=== PATIENT | male | born 1950 | race Hispanic/Latino ===

== ENCOUNTER → 2018-05-02 | Outpatient (CLI) | payer OTHER ==
[~2018-05-02] VITALS: Ht 180.3 cm; Wt 93.9 kg
[~2018-05-02] MED LIST: ALDACTONE25 MG PO; ARNUITY ELLIPT50 MCG IH; COREG6.25 M1 PO; COZAAR100 MG PO; GLUCOTROL10 MG PO; HYDROCHLOROTHIA25 MG PO; NORVASC10 MG PO; OMEPRAZOLE40 M1 PO; PEG 3350 ELEC4000 ML PO; PRAVACHOL40 MG PO; SAW PALMETTO450 MG PO; TRULICITY0.75 MG/0. SC; VITAMIN D31000 UNIT PO
[2018-05-02 08:51] LABS: HEMATOCRIT 34.6 % (38.0-50.0); HEMOGLOBIN 12.1 G/DL (12.5-16.6); MCV 82.8 FL (86-99)
== END | disposition home or self-care (01) ==
LOC: AMB 05-01 08:30
PROVIDERS: Internal Medicine Gastroenterology
DX: C18.7 Malignant neoplasm of sigmoid colon (principal); D12.2 Benign neoplasm of ascending colon; K64.8 Other hemorrhoids; Z86.010 Personal history of colon polyps; Z87.891 Personal history of nicotine dependence; I12.9 Hypertensive chronic kidney disease with stage 1 through stage 4 chronic kidney disease, or unspecified chronic kidney disease; E11.22 Type 2 diabetes mellitus with diabetic chronic kidney disease; N18.3 Chronic kidney disease, stage 3 (moderate); E78.1 Pure hyperglyceridemia; K21.9 Gastro-esophageal reflux disease without esophagitis; E78.6 Lipoprotein deficiency; E11.21 Type 2 diabetes mellitus with diabetic nephropathy; E11.40 Type 2 diabetes mellitus with diabetic neuropathy, unspecified; E11.51 Type 2 diabetes mellitus with diabetic peripheral angiopathy without gangrene; Z79.82 Long term (current) use of aspirin; Z79.84 Long term (current) use of oral hypoglycemic drugs; E66.3 Overweight; Z68.28 Body mass index [BMI] 28.0-28.9, adult; Z88.8 Allergy status to other drugs, medicaments and biological substances
CPT/HCPCS: 82948; 85014; 85018; 88305; 93005

== ENCOUNTER → 2018-06-10 | Outpatient (CLI) | payer OTHER | END | disposition home or self-care (01) | LOC: CDC 13:19 | DX: Z01.810 Encounter for preprocedural cardiovascular examination (principal); I44.0 Atrioventricular block, first degree; I45.10 Unspecified right bundle-branch block; I44.4 Left anterior fascicular block | CPT/HCPCS: 93000 ==

== ENCOUNTER 2018-06-25 10:19 | Inpatient (IN) | payer OTHER ==
[~2018-06-25] VITALS: Ht 180.3 cm; Wt 99.4 kg
[~2018-06-25 10:19] MED LIST changes: +CARVEDILOL12.5 MG PO
[2018-07-05 09:47] VITALS: BP 122/72
[2018-07-05 17:15] VITALS: BP 150/77
[2018-07-05 23:07] VITALS: BP 115/70
[2018-07-06 06:07] LABS: BASOPHIL (%) 0.1 % (0-1); EOSINOPHIL (%) 0 % (0-5); HEMATOCRIT 33.6 % (38.0-50.0); HEMOGLOBIN 11.9 G/DL (12.5-16.6); IMMATURE GRANULOCYTE (%) 0.5 % (0.0-0.7); LYMPHOCYTE (%) 14.9 % (15-42); LYMPHOCYTE COUNT 1.8 K/uL (1.0-2.8); MCH 29.7 PG (29.0-34.0); MCHC 35.4 G/DL (30.0-36.0); MCV 83.8 FL (86-99); MONOCYTE (%) 6.5 % (3-12); MONOCYTE COUNT 0.8 K/uL (0-0.8); NEUTROPHIL COUNT 9.2 K/uL (1.8-6.4); PLATELET COUNT 158 K/uL (156-360); RBC DIS.WIDTH-CV 12.6 % (11.8-14.6); RBC DIS.WIDTH-SD 38.5 % (39-53); RED BLOOD COUNT 4.01 M/uL (4.00-5.50); WHITE BLOOD COUNT 11.8 K/uL (4.1-10.2)
[2018-07-06 06:27] LABS: CHLORIDE 108 MEQ/L (99-109); GFR ESTIMATE (CALCULATED) 35 mL/min/ (58.99-99999); GLUCOSE 158 mg/dL (70-99); POTASSIUM 5.5 MEQ/L (3.7-5.4); SODIUM 136 MEQ/L (136-147); UREA NITROGEN (BUN) 32 mg/dL (9-23)
[2018-07-06 07:19] VITALS: BP 125/82
[2018-07-06 15:58] VITALS: BP 133/81
[2018-07-06 22:53] VITALS: BP 134/84
[2018-07-07 06:03] LABS: BASOPHIL (%) 0.3 % (0-1); BASOPHIL COUNT 0.1 K/uL (0-0.1); EOSINOPHIL (%) 0.5 % (0-5); EOSINOPHIL COUNT 0.1 K/uL (0-0.3); HEMATOCRIT 37.3 % (38.0-50.0); IMMATURE GRANULOCYTE (%) 0.6 % (0.0-0.7); LYMPHOCYTE (%) 17.3 % (15-42); LYMPHOCYTE COUNT 2.7 K/uL (1.0-2.8); MCH 29.7 PG (29.0-34.0); MCHC 34.9 G/DL (30.0-36.0); MCV 85.2 FL (86-99); MONOCYTE (%) 6.5 % (3-12); NEUTROPHIL (%) 74.8 % (45-76); NEUTROPHIL COUNT 11.8 K/uL (1.8-6.4); PLATELET COUNT 173 K/uL (156-360); RBC DIS.WIDTH-CV 12.8 % (11.8-14.6); RBC DIS.WIDTH-SD 39.7 % (39-53); RED BLOOD COUNT 4.38 M/uL (4.00-5.50); WHITE BLOOD COUNT 15.8 K/uL (4.1-10.2)
[2018-07-07 06:37] LABS: CHLORIDE 108 MEQ/L (99-109); CREATININE 1.8 MG/DL (0.6-1.3); GFR ESTIMATE (CALCULATED) 40 mL/min/ (58.99-99999); GLUCOSE 164 mg/dL (70-99); POTASSIUM 5.1 MEQ/L (3.7-5.4); SODIUM 136 MEQ/L (136-147); UREA NITROGEN (BUN) 36 mg/dL (9-23)
[2018-07-07 06:59] VITALS: BP 136/88
[2018-07-07 15:38] VITALS: BP 128/80
[2018-07-07 23:52] VITALS: BP 122/76
[2018-07-08 04:30] VITALS: BP 144/85
[2018-07-08 06:14] LABS: BASOPHIL (%) 0.5 % (0-1); BASOPHIL COUNT 0.1 K/uL (0-0.1); EOSINOPHIL (%) 3.3 % (0-5); EOSINOPHIL COUNT 0.5 K/uL (0-0.3); HEMATOCRIT 37.7 % (38.0-50.0); HEMOGLOBIN 12.9 G/DL (12.5-16.6); IMMATURE GRANULOCYTE (%) 0.4 % (0.0-0.7); LYMPHOCYTE (%) 16.7 % (15-42); LYMPHOCYTE COUNT 2.3 K/uL (1.0-2.8); MCH 29.5 PG (29.0-34.0); MCHC 34.2 G/DL (30.0-36.0); MCV 86.1 FL (86-99); MONOCYTE (%) 6.2 % (3-12); MONOCYTE COUNT 0.9 K/uL (0-0.8); NEUTROPHIL (%) 72.9 % (45-76); NEUTROPHIL COUNT 10.1 K/uL (1.8-6.4); PLATELET COUNT 138 K/uL (156-360); RBC DIS.WIDTH-SD 40.7 % (39-53); RED BLOOD COUNT 4.38 M/uL (4.00-5.50); WHITE BLOOD COUNT 13.8 K/uL (4.1-10.2)
[2018-07-08 06:39] LABS: C-REACTIVE PROTEIN 22.9 MG/L (0-10); CHLORIDE 109 MEQ/L (99-109); CREATININE 1.8 MG/DL (0.6-1.3); GFR ESTIMATE (CALCULATED) 40 mL/min/ (58.99-99999); GLUCOSE 131 mg/dL (70-99); POTASSIUM 5.1 MEQ/L (3.7-5.4); SODIUM 139 MEQ/L (136-147); UREA NITROGEN (BUN) 40 mg/dL (9-23)
[2018-07-08 07:03] VITALS: BP 127/91
[2018-07-08 15:51] VITALS: BP 137/83
[2018-07-08 21:10] VITALS: BP 118/79
[2018-07-08 23:45] VITALS: BP 149/88
[2018-07-09 08:14] VITALS: BP 128/82
[2018-07-09 08:21] LABS: HEMATOCRIT 36.1 % (38.0-50.0); HEMOGLOBIN 13.2 G/DL (12.5-16.6); MCH 30.6 PG (29.0-34.0); MCHC 36.6 G/DL (30.0-36.0); MCV 83.8 FL (86-99); RBC DIS.WIDTH-CV 12.8 % (11.8-14.6); RBC DIS.WIDTH-SD 39.1 % (39-53); RED BLOOD COUNT 4.31 M/uL (4.00-5.50); WHITE BLOOD COUNT 11.7 K/uL (4.1-10.2)
[2018-07-09 08:31] LABS: PLATELET COUNT 194 K/uL (156-360)
[2018-07-09 09:23] LABS: CHLORIDE 109 MEQ/L (99-109); CREATININE 1.7 MG/DL (0.6-1.3); GFR ESTIMATE (CALCULATED) 43 mL/min/ (58.99-99999); GLUCOSE 234 mg/dL (70-99); POTASSIUM 4.5 MEQ/L (3.7-5.4); SODIUM 139 MEQ/L (136-147); UREA NITROGEN (BUN) 42 mg/dL (9-23)
[2018-07-09 16:09] VITALS: BP 142/82
[2018-07-09 21:50] VITALS: BP 128/72
[2018-07-10 00:21] VITALS: BP 134/81
[2018-07-10 07:13] VITALS: BP 123/76
[2018-07-10 08:24] LABS: HEMATOCRIT 34.2 % (38.0-50.0); HEMOGLOBIN 12.2 G/DL (12.5-16.6); MCH 30.5 PG (29.0-34.0); MCHC 35.7 G/DL (30.0-36.0); MCV 85.5 FL (86-99); PLATELET COUNT 210 K/uL (156-360); RBC DIS.WIDTH-CV 13.2 % (11.8-14.6); WHITE BLOOD COUNT 11.8 K/uL (4.1-10.2)
[2018-07-10 09:48] LABS: ALBUMIN 2.7 G/DL (3.2-4.8); ALKALINE PHOSPHATASE 35 IU/L (3-129); ALT (GPT) 41 IU/L (3-49); AST (GOT) 33 IU/L (2-34); C-REACTIVE PROTEIN 3.9 MG/L (0-10); CHLORIDE 115 MEQ/L (99-109); CREATININE 1.6 MG/DL (0.6-1.3); GFR ESTIMATE (CALCULATED) 46 mL/min/ (58.99-99999); POTASSIUM 4.6 MEQ/L (3.7-5.4); SODIUM 140 MEQ/L (136-147); TOTAL BILIRUBIN 0.6 MG/DL (0.0-1.0); TOTAL PROTEIN 5.3 G/DL (6.4-8.3); UREA NITROGEN (BUN) 38 mg/dL (9-23)
[2018-07-10 09:52] LABS: GLUCOSE 113 mg/dL (70-99)
[2018-07-10 15:18] VITALS: BP 123/76
[2018-07-10 20:00] VITALS: BP 130/79
[2018-07-11 00:18] VITALS: BP 121/67
[2018-07-11 07:05] VITALS: BP 109/60
[2018-07-11 15:54] VITALS: BP 108/65
[2018-07-11 18:38] VITALS: BP 130/74
[2018-07-12 00:50] VITALS: BP 130/81
[2018-07-12 05:53] LABS: BASOPHIL (%) 0.4 % (0-1); EOSINOPHIL (%) 3.6 % (0-5); EOSINOPHIL COUNT 0.3 K/uL (0-0.3); HEMATOCRIT 33.4 % (38.0-50.0); HEMOGLOBIN 11.5 G/DL (12.5-16.6); IMMATURE GRANULOCYTE (%) 0.4 % (0.0-0.7); LYMPHOCYTE (%) 17.4 % (15-42); LYMPHOCYTE COUNT 1.6 K/uL (1.0-2.8); MCH 29.4 PG (29.0-34.0); MCHC 34.4 G/DL (30.0-36.0); MCV 85.4 FL (86-99); MONOCYTE (%) 5.1 % (3-12); MONOCYTE COUNT 0.5 K/uL (0-0.8); NEUTROPHIL (%) 73.1 % (45-76); NEUTROPHIL COUNT 6.8 K/uL (1.8-6.4); PLATELET COUNT 171 K/uL (156-360); RBC DIS.WIDTH-SD 40.3 % (39-53); RED BLOOD COUNT 3.91 M/uL (4.00-5.50); WHITE BLOOD COUNT 9.4 K/uL (4.1-10.2)
[2018-07-12 06:24] LABS: CHLORIDE 114 MEQ/L (99-109); CREATININE 1.4 MG/DL (0.6-1.3); GFR ESTIMATE (CALCULATED) 53 mL/min/ (58.99-99999); GLUCOSE 151 mg/dL (70-99); POTASSIUM 4.2 MEQ/L (3.7-5.4); SODIUM 139 MEQ/L (136-147); UREA NITROGEN (BUN) 30 mg/dL (9-23)
[2018-07-12 06:57] VITALS: BP 135/78
[2018-07-12] MEDS ORDERED: ULTRAM50 MG PO (13:38)
[2018-07-12] MEDS ORDERED: COLACE100 MG PO (13:38)
[2018-07-12 15:15] VITALS: BP 115/77
== END 2018-07-12 17:53 | disposition home or self-care (01) | DRG 330 ==
LOC: 2SOUTH 10:19 → ENRESERV 07-04 22:33 → 2SOUTH 07-05 08:40 → 5EAST 07-05 08:40 → 2SOUTH 07-05 15:05 → ENRESERV 07-05 15:13 → 5EAST 07-05 16:44
PROVIDERS: Physician Assistant; Student in an Organized Health Care Education/Training Program
PROC: 0DTN4ZZ Resection of Sigmoid Colon, Percutaneous Endoscopic Approach (ICD-10-PCS; principal; 2018-07-05)
DX: C18.7 Malignant neoplasm of sigmoid colon (principal); K56.7 Ileus, unspecified; K66.0 Peritoneal adhesions (postprocedural) (postinfection); E11.319 Type 2 diabetes mellitus with unspecified diabetic retinopathy without macular edema; E11.21 Type 2 diabetes mellitus with diabetic nephropathy; E11.40 Type 2 diabetes mellitus with diabetic neuropathy, unspecified; E66.3 Overweight; I73.9 Peripheral vascular disease, unspecified; Z79.84 Long term (current) use of oral hypoglycemic drugs; Z68.30 Body mass index [BMI] 30.0-30.9, adult; Z79.82 Long term (current) use of aspirin; Z83.3 Family history of diabetes mellitus; Z82.49 Family history of ischemic heart disease and other diseases of the circulatory system; Z87.891 Personal history of nicotine dependence
CPT/HCPCS: 71045; 74018; 80048; 80053; 82948; 85025; 85027; 86140; 87070; 87075; 87205; 88307; J0131; J1100; J1170; J1650; J1815; J2250; J2405; J2710; J2765; J3010; J7030; J7643; Q0175; S0074